=== PATIENT | female | born 1950 | race Caucasian/White ===

== ENCOUNTER 2021-12-18 07:31 | Observation (INO) ==
[2021-12-18] MEDS ORDERED: SODIUM CHLORIDE 0.9% 1,000 ML IV STA (08:01)
[2021-12-18] MEDS ORDERED: HYDROmorphone 2 MG/1 ML VIAL IV STA (08:01)
[2021-12-18] MEDS ORDERED: ONDANSETRON 4 MG/2 ML VIAL IV STA (08:01)
[2021-12-18 08:17] LABS: Basophils % 0.1 % (0.0-0.8); Hematocrit 41.2 VOL% (35.7-47.0); Hemoglobin 13.4 GM/DL (12.0-16.0); Immature Granulocytes % 0.3 %; Immature Granulocytes Absolute 0.03 #; Lymphocytes # 0.6 10*3/uL (1.4-4.0); Lymphocytes % 5.5 % (21.3-54.2); Mean Corpuscular HGB Conc 32.5 GM/DL (32-36); Mean Corpuscular Volume 83.7 FL (87-102); Mean Platelet Volume 9.5 FL (9.6-12.0); Monocytes % 5.3 % (1.7-12.7); Neutrophils % 88.8 % (38.7-73.9); Platelet Count 367 T/CUMM (130-400); Red Blood Count 4.92 MC/CUMM (3.8-5.5); Red Cell Distribution Width 14.6 % (9.3-17.3); White Blood Count 11.4 T/CUMM (4-12)
[2021-12-18 08:35] LABS: Band Neutrophils 6 % (0-10); Hypochromia Slight; Lymphocytes 3 % (20-55); Microcytosis Slight; Platelet Estimate Adequate; Segmented Neutrophils 86 % (50-85); Total Cells Counted 100
[2021-12-18 09:27] LABS: Bilirubin,Total 0.7 MG/DL (0.20-1.00)
[2021-12-18 09:36] LABS: Osmolality,Calculated 276.2 MOS/KG (273-304)
[2021-12-18 09:41] LABS: Albumin 3.4 G/DL (3.4-5.0); Calcium 9.2 MG/DL (8.5-10.1); Total Protein 7.7 G/DL (6.4-8.2)
[2021-12-18 09:42] LABS: Potassium 3.4 MMOL/L (3.5-5.1)
[2021-12-18] MEDS ORDERED: DEXTROSE 10% 250 ML BAG IV PRN (11:04)
[2021-12-18] MEDS ORDERED: ACETAMINOPHEN 325 MG TABLET PO PRN (11:04)
[2021-12-18] MEDS ORDERED: ONDANSETRON 4 MG/2 ML VIAL IV PRN (11:04)
[2021-12-18] MEDS ORDERED: GLUCAGON 1 MG VIAL IM PRN (11:04)
[2021-12-18] MEDS ORDERED: MORPHINE 2 MG/1 ML SYRINGE IV PRN ×3 (11:08→12:40)
[2021-12-18] MEDS: ENOXAPARIN 40 MG/0.4 ML SYRINGE SUBCUT SCH (12:15)
[2021-12-18] MEDS: PANTOPRAZOLE 40 MG VIAL IV SCH (12:35)
[2021-12-18] MEDS: SODIUM CHLOR 0.9% KCL 20 MEQ 20 MEQ/1,000 ML BAG IV SCH (13:02)
[2021-12-18] MEDS: ASPIRIN EC 81 MG TABLET PO SCH (21:10)
[2021-12-19 05:24] LABS: Basophils % 0.4 % (0.0-0.8); Eosinophils % 0.8 % (0.00-10.9); Hematocrit 36.2 VOL% (35.7-47.0); Immature Granulocytes % 0.4 %; Immature Granulocytes Absolute 0.02 #; Lymphocytes # 1.3 10*3/uL (1.4-4.0); Mean Corpuscular HGB Conc 31.2 GM/DL (32-36); Mean Corpuscular Volume 86.8 FL (87-102); Mean Platelet Volume 9.8 FL (9.6-12.0); Monocytes % 13.1 % (1.7-12.7); Neutrophils % 60.3 % (38.7-73.9); Platelet Count 297 T/CUMM (130-400); Red Blood Count 4.17 MC/CUMM (3.8-5.5); Red Cell Distribution Width 14.8 % (9.3-17.3)
[2021-12-19 05:25] LABS: Hemoglobin 11.3 GM/DL (12.0-16.0); White Blood Count 5.3 T/CUMM (4-12)
[2021-12-19 05:38] LABS: Band Neutrophils 12 % (0-10); Eosinophils 1 % (0-10); Lymphocytes 27 % (20-55); Platelet Estimate Normal; Segmented Neutrophils 48 % (50-85); Total Cells Counted 100
[2021-12-19 05:43] LABS: Albumin 2.4 G/DL (3.4-5.0); Bilirubin,Total 2.3 MG/DL (0.20-1.00); Calcium 8.3 MG/DL (8.5-10.1); Osmolality,Calculated 287.1 MOS/KG (273-304); Potassium 3.6 MMOL/L (3.5-5.1); Risk Ratio 4.88; Thyroid Stimulating Hormone 0.769 uIU/ml (0.358-3.74); VLDL Cholesterol 16.2 MG/DL
[2021-12-19] MEDS: SODIUM CHLOR 0.9% KCL 20 MEQ 20 MEQ/1,000 ML BAG IV SCH ×3 (09:39→20:13)
[2021-12-19] MEDS: METOPROLOL SUCCINATE XL 25 MG TABLET PO SCH ×2 (09:40→12:05)
[2021-12-19] MEDS: CHOLECALCIFEROL 5,000 UNIT TABLET PO SCH (09:41)
[2021-12-19] MEDS: PANTOPRAZOLE 40 MG VIAL IV SCH (09:59)
[2021-12-19] MEDS: ENOXAPARIN 40 MG/0.4 ML SYRINGE SUBCUT SCH (12:51)
[2021-12-19] MEDS: ASPIRIN EC 81 MG TABLET PO SCH (20:02)
[2021-12-20 05:18] LABS: Basophils # 0.1 10*3/uL (0.0-0.2); Eosinophils # 0.1 10*3/uL (0.0-0.87); Eosinophils % 1.4 % (0.00-10.9); Hematocrit 36.9 VOL% (35.7-47.0); Hemoglobin 11.3 GM/DL (12.0-16.0); Lymphocytes # 1.3 10*3/uL (1.4-4.0); Lymphocytes % 27.1 % (21.3-54.2); Mean Corpuscular HGB Conc 30.6 GM/DL (32-36); Mean Corpuscular Volume 88.1 FL (87-102); Mean Platelet Volume 9.6 FL (9.6-12.0); Neutrophils % 61.3 % (38.7-73.9); Platelet Count 289 T/CUMM (130-400); Red Blood Count 4.19 MC/CUMM (3.8-5.5); Red Cell Distribution Width 14.2 % (9.3-17.3); White Blood Count 4.9 T/CUMM (4-12)
[2021-12-20 05:37] LABS: Albumin 2.4 G/DL (3.4-5.0); Bilirubin,Total 1.1 MG/DL (0.20-1.00); Calcium 8.3 MG/DL (8.5-10.1); Potassium 3.7 MMOL/L (3.5-5.1); Total Protein 5.8 G/DL (6.4-8.2)
[2021-12-20 05:55] LABS: Band Neutrophils 3 % (0-10); Eosinophils 1 % (0-10); Lymphocytes 28 % (20-55); Segmented Neutrophils 55 % (50-85)
[2021-12-20 05:56] LABS: Acanthocytes Few; Microcytosis 1+; Ovalocytes Slight
[2021-12-20 05:57] LABS: Platelet Estimate Normal
[2021-12-20] MEDS: METOPROLOL SUCCINATE XL 25 MG TABLET PO SCH (10:06)
[2021-12-20] MEDS: CHOLECALCIFEROL 5,000 UNIT TABLET PO SCH (10:06)
[2021-12-20] MEDS: PANTOPRAZOLE 40 MG VIAL IV SCH (10:09)
[2021-12-20] MEDS: ENOXAPARIN 40 MG/0.4 ML SYRINGE SUBCUT SCH (12:07)
[2021-12-20] MEDS: SODIUM CHLOR 0.9% KCL 20 MEQ 20 MEQ/1,000 ML BAG IV SCH ×2 (15:35→16:41)
[2021-12-20] MEDS: ASPIRIN EC 81 MG TABLET PO SCH (20:43)
[2021-12-21] MEDS: CHOLECALCIFEROL 5,000 UNIT TABLET PO SCH (08:15)
[2021-12-21] MEDS: METOPROLOL SUCCINATE XL 25 MG TABLET PO SCH (08:15)
[2021-12-21] MEDS: PANTOPRAZOLE 40 MG VIAL IV SCH (08:15)
[2021-12-21 12:19] VITALS: BP 130/83
== END 2021-12-21 12:44 | disposition home or self-care (01) ==
LOC: N.ED 07:31 → N.EDINP 07:31 → SUATTDRO 11:04 → N.EDINP 17:28 → N.5E 17:52
PROVIDERS: ADMIT Internal Medicine; ATTEND Internal Medicine